=== PATIENT | female | born 1960 | race Caucasian/White ===

== ENCOUNTER 2023-11-23 16:34 | Inpatient (IN) | payer MEDICARE, OTHER ==
[~2023-11-23] VITALS: Ht 152.4 cm; Wt 65.3 kg
[2023-11-23] MEDS: IV NS 0.9% 1,000 ML BAG IV ONE (17:15)
[2023-11-23] MEDS ORDERED: ONDANSETRON HCL/PF 4 MG/2 ML VIAL ONE (17:31)
[2023-11-23 17:32] LABS: BASOPHILS # (AUTO) 0.1 K/uL (0.0-0.2); BASOPHILS % (AUTO) 0.4 % (0.0-2.0); HEMATOCRIT 37 % (33-45); HEMOGLOBIN 12.2 g/dL (11.5-14.8); LYMPHOCYTES # (AUTO) 0.7 K/uL (0.8-4.8); LYMPHOCYTES % (AUTO) 3.9 % (20.0-44.0); MEAN CORPUSCULAR HEMOGLOBIN 27 PG (26.0-33.0); MEAN CORPUSCULAR HGB CONC 33 g/dl (31.0-36.0); MEAN CORPUSCULAR VOLUME 84 fL (82-100); MONOCYTES # (AUTO) 1.7 K/uL (0.1-1.30); MONOCYTES % (AUTO) 8.8 % (2.0-12.0); NEUTROPHILS # (AUTO) 16.5 K/uL (1.8-8.9); NEUTROPHILS % (AUTO) 86.9 % (43.0-81.0); PLATELET COUNT (AUTO) 275 K/uL (150-450); RED BLOOD CELL COUNT(AUTO) 4.46 MIL/uL (4.0-5.2); RED CELL DISTRIBUTION WIDTH 14.9 % (11.5-15.0)
[2023-11-23] MEDS ORDERED: MORPHINE SULFATE INJ 4 MG/ML DISP.SYRIN ONE (17:32)
[2023-11-23 17:41] LABS: CALCIUM, SERUM 8.4 mg/dL (8.5-10.1); CARBON DIOXIDE 30 mmol/L (21-32); CHLORIDE 97 mmol/L (98-107); CREATININE 0.8 mg/dL (0.6-1.3); GLUCOSE 127 mg/dL (74-106); POTASSIUM 3.9 mmol/L (3.5-5.1); SODIUM SERUM 132 mmol/L (136-145)
[2023-11-23 17:47] LABS: ALANINE AMINOTRANSFERASE 30 U/L (12-78); ALBUMIN 2.6 g/dL (3.4-5.0); ALKALINE PHOSPHATASE 117 U/L (46-116); ASPARTATE AMINOTRANSFERASE 31 U/L (15-37); BILIRUBIN,DIRECT 0.2 mg/dL (0.0-0.2); BILIRUBIN,TOTAL 0.6 mg/dL (0.2-1.0); TOTAL PROTEIN, SERUM 6.6 g/dL (6.4-8.2); UREA NITROGEN, BLOOD 13 mg/dL (7-18)
[2023-11-23 17:49] LABS: INR 1.13 (0.91-1.10); LACTIC ACID 1.5 mmol/L (0.4-2.0); PARTIAL THROMBOPLASTIN TIME 38.2 SEC (24.3-34.3); PROTHROMBIN TIME 11.9 SECS (9.2-11.1)
[2023-11-23] MEDS ORDERED: ACETAMINOPHEN ES 500 MG TABLET ONE (17:59)
[2023-11-23] MEDS: ACETAMINOPHEN ES 500 MG TABLET PO ONE (18:02)
[2023-11-23 18:04] LABS: BILIRUBIN,URINE Negative (NEGATIVE); BLOOD, URINE Moderate Ery/uL (NEGATIVE); COLOR,URINE YELLOW (YELLOW); KETONES,URINE Negative (NEGATIVE); LEUKOCYTE ESTERASE ,URINE Small (NEGATIVE); NITRITE, URINE Negative (NEGATIVE); PROTEIN,URINE >=300 mg/dl (NEGATIVE); UGLUCOSE Negative (NEGATIVE)
[2023-11-23] MEDS: CEFEPIME 1 GM in IV D5W 50 ML IV ONE (18:04)
[2023-11-23] MEDS: ONDANSETRON HCL/PF 4 MG/2 ML VIAL IVP ONE (18:05)
[2023-11-23] MEDS: MORPHINE SULFATE INJ 2 MG/ML DISP.SYRIN IV ONE (18:06)
[2023-11-23] MEDS: VANCOMYCIN 1 GM in IV D5W 250 ML IV ONE (18:06)
[2023-11-23 18:33] LABS: APPEARANCE,URINE TURBID (CLEAR)
[2023-11-23 18:35] LABS: RBC,URINE 21-50 /HPF (0-2); WBC,URINE 51-80 /HPF (0-3)
[2023-11-23 18:36] LABS: ADD URINE CULTURE YES; BACTERIA,URINE 1+ /HPF (None Seen)
[2023-11-23] MEDS ORDERED: Z GUARD REMEDY 4 OZ OINT TP PRN (22:00)
[2023-11-23] MEDS ORDERED: MAGNESIUM HYDROXIDE 30 ML UDC PO PRN (22:00)
[2023-11-23] MEDS ORDERED: ONDANSETRON HCL/PF 4 MG/2 ML VIAL IVP PRN (22:00)
[2023-11-23] MEDS ORDERED: ZOLPIDEM TARTRATE 5 MG TABLET PO PRN (22:00)
[2023-11-23] MEDS ORDERED: NITROGLYCERIN 30 GM TUBE TP PRN (22:00)
[2023-11-23] MEDS ORDERED: ACETAMINOPHEN 325 MG TABLET PO PRN (22:00)
[2023-11-23 22:18] VITALS: BP 117/74; TEMP 98.4; O2SAT 95
[2023-11-23] MEDS: ENOXAPARIN SODIUM 40 MG/0.4 ML DISP.SYRIN SQ SCH (23:24)
[2023-11-24] MEDS: MAG HYDROX/AL HYDROX/SIMETH 30 ML UDC PO PRN (03:37)
[2023-11-24 04:00] VITALS: BP 126/82; TEMP 98.6; O2SAT 97
[2023-11-24 08:00] VITALS: BP 111/71; TEMP 98.2; O2SAT 93; O2SAT 97
[2023-11-24 08:00] LABS: ALBUMIN 1.8 g/dL (3.4-5.0); BILIRUBIN,DIRECT 0.3 mg/dL (0.0-0.2); BILIRUBIN,TOTAL 0.4 mg/dL (0.2-1.0); CALCIUM, SERUM 8.5 mg/dL (8.5-10.1); CREATININE 0.7 mg/dL (0.6-1.3); MAGNESIUM 1.9 mg/dL (1.8-2.4); PHOSPHORUS 2.4 mg/dL (2.5-4.9); POTASSIUM 3.6 mmol/L (3.5-5.1); TOTAL PROTEIN, SERUM 5.6 g/dL (6.4-8.2)
[2023-11-24] MEDS: PANTOPRAZOLE 40 MG TABLET.DR PO SCH (08:10)
[2023-11-24 08:19] LABS: THYROID STIMULATING HORMONE 0.84 uIU/mL (0.358-3.74)
[2023-11-24 08:23] LABS: ERYTHROCYTE SEDIMENTATION RATE 78 MM/HR (0-30)
[2023-11-24 08:30] LABS: HEMATOCRIT 34 % (33-45); HEMOGLOBIN 11.1 g/dL (11.5-14.8); LYMPHOCYTES # (AUTO) 0.7 K/uL (0.8-4.8); LYMPHOCYTES % (AUTO) 3.1 % (20.0-44.0); MEAN CORPUSCULAR HEMOGLOBIN 27 PG (26.0-33.0); MEAN CORPUSCULAR HGB CONC 32 g/dl (31.0-36.0); MEAN CORPUSCULAR VOLUME 83 fL (82-100); MONOCYTES # (AUTO) 1.9 K/uL (0.1-1.30); MONOCYTES % (AUTO) 8.6 % (2.0-12.0); NEUTROPHILS # (AUTO) 19.1 K/uL (1.8-8.9); NEUTROPHILS % (AUTO) 88.3 % (43.0-81.0); PLATELET COUNT (AUTO) 245 K/uL (150-450); RED BLOOD CELL COUNT(AUTO) 4.12 MIL/uL (4.0-5.2); RED CELL DISTRIBUTION WIDTH 15.1 % (11.5-15.0); WHITE BLOOD COUNT (AUTO) 21.7 K/uL (4.3-11.0)
[2023-11-24] MEDS: CEFEPIME 1 GM in IV D5W 50 ML IV SCH (08:52)
[2023-11-24] MEDS: FUROSEMIDE 20 MG/2 ML VIAL IV SCH (08:53)
[2023-11-24] MEDS: VANCOMYCIN 750 MG in IV D5W 250 ML IV SCH (10:49)
[2023-11-24] MEDS: MORPHINE SULFATE INJ 2 MG/ML DISP.SYRIN IV PRN (12:23)
[2023-11-24] MEDS: ZOSYN IVPB 3.375 G in IV D5W 50ml IV ONE (13:35)
[2023-11-24 14:55] VITALS: BP 124/77; TEMP 97.9; O2SAT 92
[2023-11-24] MEDS: K PHOS NEUTRAL 250 MG TABLET PO ONE (16:21)
[2023-11-24] MEDS ORDERED: PIPERACILLIN /TAZOBACTAM 3.375 G in IV D5W 100 ML IV SCH (21:00)
== END 2023-11-24 21:10 | disposition home or self-care (01) | DRG 871 ==
LOC: ER 16:49 → MEDSG1 21:38
PROVIDERS: ADMIT Nurse Practitioner Family; ATTEND Nurse Practitioner Acute Care
DX: A41.50 Gram-negative sepsis, unspecified (principal); I50.33 Acute on chronic diastolic (congestive) heart failure; N10 Acute pyelonephritis; L03.116 Cellulitis of left lower limb; E46 Unspecified protein-calorie malnutrition; J90 Pleural effusion, not elsewhere classified; N13.6 Pyonephrosis; E87.1 Hypo-osmolality and hyponatremia; D68.59 Other primary thrombophilia; Z20.822 Contact with and (suspected) exposure to COVID-19; I11.0 Hypertensive heart disease with heart failure; E88.09 Other disorders of plasma-protein metabolism, not elsewhere classified; E78.5 Hyperlipidemia, unspecified; E11.65 Type 2 diabetes mellitus with hyperglycemia; E83.51 Hypocalcemia; Z91.148 Patient's other noncompliance with medication regimen for other reason; Z91.199 Patient's noncompliance with other medical treatment and regimen due to unspecified reason; E66.01 Morbid (severe) obesity due to excess calories; Z68.28 Body mass index [BMI] 28.0-28.9, adult; B96.89 Other specified bacterial agents as the cause of diseases classified elsewhere; F19.90 Other psychoactive substance use, unspecified, uncomplicated; K80.20 Calculus of gallbladder without cholecystitis without obstruction
CPT/HCPCS: 36415; 71045-TC; 80048-TC; 80061-TC; 80076-TC; 81001; 83605-TC; 83735-TC; 83880; 84100-TC; 84443-TC; 84484-TC; 85025-TC; 85652-TC; 85730-TC; 87040-TC; 87086-TC; 87186-TC; 93307-TC; 93971-TC; A4223; G0378; J0692; J1650; J1940; J2270; J2405; J2543; J3370; J3371; J7030; J7040; J7050; J7060